=== PATIENT | male | born 1960 ===

== ENCOUNTER 2018-12-03 11:44 | Day surgery (SDC) | payer OTHER ==
[~2018-12-03 11:44] MED LIST: NACL 0.9% 1000 ML 1,000 ML IV SCH
--- NOTE | 2018-12-03 13:37 | Anesthesia Day of Surgery ---
Anesthesia Day of Surgery - Day of Surgery Patient Examined: Yes Patient H&P Reviewed: Yes Patient is NPO: Yes
--- NOTE | 2018-12-03 13:41 | Anesthesia Consultation ---
Anesthesia Consult and Med Hx Date of service: 12/03/18 - Airway Anesthetic Teeth Evaluation: Good ROM Head & Neck: Adequate Mental/Hyoid Distance: Adequate Mallampati Class: Class II Intubation Access Assessment: Good - Pre-Operative Health Status ASA Pre-Surgery Classification: ASA1 Proposed Anesthetic Plan: MAC
[2018-12-03] MEDS ORDERED: DIPRIVAN 10 MG/ML IV ONE ×2 (14:34)
--- NOTE | 2018-12-03 15:07 | Operative Report ---
Operative Report Operative Report: Date of procedure: 12/03/2018 Procedure: Colonoscopy with Snare polypectomy and submucosal injection. Attending physician: Quentin Sweeney MD Circuit Board Drafter: Quentin Sweeney MD Indication: Patient is a 58-year-old male who presents for screening colonoscopy for family history of colon cancer. This colonoscopy serves to evaluate patient so that treatment may be directed based on the findings. Consent: Informed consent was obtained after advising the patient and family regarding nature of this procedure, its indications, potential benefits as well as possible complications including but not limited to bleeding perforation and adverse reaction to medication, infection as well as other cardiopulmonary complications. An informed written and verbal consent was then obtained after due opportunity was provided for questions and answers. Monitoring: Patient was monitored continuously with pulse oximetry and electrocardiographic recordings as well as blood pressure recordings. Vital signs remained stable throughout this procedure with no untoward events. Preoperative assessment: Patient was assessed immediately prior to this procedure for capacity to tolerate monitored anesthesia care and moderate sedation as well as general anesthesia. Patient's ASA classification is 2, Mallampati class is 2, Hyomental distance is 3. Instrument: Olympus video colonoscope [id number] Medications: Propofol given intravenously in divided doses. For details please refer to anesthesia records. Description of procedure: Patient was placed in the left lateral decubitus position after achieving sedation, a digital rectal examination was performed following which the colonoscope was introduced into the anal verge and advanced to the cecum which was identified by the cecal valve, the appendiceal orifice, as well as by the cecal strap and direct transillumination. The colonoscope was subsequently withdrawn with careful inspection of all mucosal surfaces. Patient tolerated this procedure well and was subsequently taken to the recovery room. The following findings were noted. Findings: Patient had an 8 mm sessile polyp seen in the transverse colon, which was elevated with submucosal injection of saline and removed by snare electrocautery and retrieved. The base of the polyp was then ablated Patient had substantial retained stool with thick liquid densely adherent stool seen in various sections of the colon. Patient was noted to have internal hemorrhoids seen on the retroflexed view at the anal verge. Impression: Transverse colon polyp status post submucosal injection and snare polypectomy. Retained stool. Internal hemorrhoids. Plan: Follow pathology report. High-fiber diet. Repeat colonoscopy within in 1 year due to retained stool in sections of the colon.
--- NOTE | 2018-12-03 15:07 | Discharge Summary ---
Short Stay Discharge Plan Activity: advance as tolerated Weight Bearing Status: Weight Bear as Tolerated Diet: regular Additional Instructions: Post Sedation D/C Instructions When you return home you may resume your regular diet unless otherwise directed. -Go directly home from the hospital and rest quietly. You may resume normal activities tomorrow. -Do NOT drive, return to work, operate any machinery or make any important personal or business decisions today. -Do NOT drink any alcohol or take nerve or sleeping drugs. They add to the effects of the medicine still present in your body. NO ASPIRIN OR NSAIDS NEXT 1-[address] UP WITH [address] YEE'S OFFICE IN THE NEXT 1-2 WEEKS FOR RESULTS OF BIOPSY Follow up with: PRIMARY CARE, [Primary Care Provider] - 7 Days
[2018-12-03 18:00] VITALS: BP 117/71
== END 2018-12-03 11:45 | disposition home or self-care (01) ==
LOC: GIO 11:44
PROVIDERS: ATTEND Internal Medicine Gastroenterology
DX: Z12.11 Encounter for screening for malignant neoplasm of colon (principal); D12.3 Benign neoplasm of transverse colon; K64.8 Other hemorrhoids; Z96.642 Presence of left artificial hip joint; Z98.890 Other specified postprocedural states
CPT/HCPCS: 45381; 45385; 88305; J2704; J7030